=== PATIENT | male | born 1975 | race Caucasian/White ===

== ENCOUNTER 2018-06-28 11:50 | Emergency (ER) | payer SELFPAY ==
[2018-06-28 11:58] VITALS: BP 194/120; PULSE 92; RESP 20; TEMP 37.1; O2SAT 98
[2018-06-28 12:04] LABS: Bilirubin Negative (Negative); Blood Moderate (Negative); Clarity Sl Cloudy; Glucose Negative (Negative); Ketones Negative (Negative); Leukocyte Esterase Negative (Negative); Nitrite Negative (Negative); Specific Gravity >= 1.030 (1.005-1.025); Urobilinogen 0.2 EU/dL (Up TO 0.2)
[2018-06-28 12:20] LABS: Bacteria Negative HPF (Negative); C & S Indicated? No; Casts Negative LPF (Negative); Crystals Moderate Amorphous HPF (Negative); Epithelial Cells Negative HPF (Negative); Mucus Heavy (Negative); WBC 0-2 HPF (0-5)
[2018-06-28] MEDS: Ondansetron 4 MG/2 ML VIAL IVP (12:20)
[2018-06-28] MEDS: Lactated Ringers 1,000 ML 1000 ML IV (12:20)
[2018-06-28] MEDS: Ketorolac 30 MG/ML VIAL IVP (12:21)
--- NOTE | 2018-06-28 12:28 | W.ED.GENAD ---
Discharge Plan Disposition Patient Disposition: HOME Discharge Details Chief Complaint: FlankPain Clinical Impression: Right kidney stone, Acute flank pain, Enlarged lymph node, Elevated blood pressure reading Primary Care Provider: Anirudh Schmitz ED Provider: Gurmeet Keller Home Meds and New Rx's Prescriptions: Continue ibuprofen 200 MG tablet 200 - 800 mg PO PRN PRNRF: 0 Discharge Instructions Instructions: Kidney Stones (ED), Hypertension (ED) Additional Instructions: Please take ibuprofen 600 mg every 6 hours as needed for pain. Use Zofran as prescribed if you have any significant nausea. Please follow-up with your primary care physician. Call today to schedule follow-up. Please be sure to discuss diagnostic imaging results including ultrasound that revealed left groin lymph node enlargement. You also need to follow-up with your primary care physician regarding your elevated blood pressure today. Please follow-up with urology. Call for an appointment. Please contact your primary care physician to arrange follow-up. Return to the ER for any worsening or new concerning symptoms. Referrals: Sam Shaikh MD [ [facility] STAFF PHYSICIAN] - Anirudh Schmitz MD [Primary Care Provider] - Discharge Data Discharge Date/Time-TO BE ENTERED AT DEPARTURE: 06/28/18 15:45 Medical Decision Making 42-year-old male with history of renal stones in the past, always on the right side, here with right flank pain consistent with prior renal stones. He has had some associated nausea and vomiting. No abdominal pain. No dysuria. No fever. Patient also notes that he has had some swelling of his right lower extremity which is chronic and of unknown etiology. Right lower extremity ultrasound was interpreted by radiology as negative for DVT, prominent lymph node was noted in the right groin. Renal ultrasound was interpreted by radiology: Technically limited study, left kidney with no gross hydronephrosis, right kidney with questionable mild hydronephrosis, no right ureteral jet noted. Patient was treated with Toradol 30 mg IV and Zofran 4 mg IV. He had significant reduction in pain and on reassessment pain was resolved. Nausea also resolved. He is feeling much better and requesting discharge. I reviewed the results of studies with the patient. I specifically discussed with him the limitations of the ultrasound study and the fact that he may have a large stone and potential for worsening disease that would go undiagnosed without additional diagnostics. We talked about the risk benefits of obtaining a CT abdomen pelvis at this time for further diagnostic value and he declined. Patient specifically notes he would prefer to be discharged given that he is feeling better and notes that he will follow-up with urology and will return to the ER should he have any running or new concerning symptoms. Disposition decision to discharge was made weighing risk and benefits of hospitalization versus outpatient treatment, the risk for further decompensation and the patient's wishes. The patient is stable, improved and requesting discharge. Prior to discharge in the usual and customary return precautions were reviewed with the patient and family. This included follow-up instructions and reasons to return to the emergency department if condition worsens, does not improve as expected, or other new concerns arise. HPI General Mode of arrival: ambulatory. Date/Time Provider Initiated Documentation: 06/28/18 12:10. Limitations to Documentation: no limitations. Information obtained by: patient. HPI Narrative: 42-year-old male with history of renal stones, all on the right side, presents today with chief complaint of right flank pain. Pain started a couple hours ago and has persisted. Pain is severe. Pain feels exactly like prior renal stone exacerbations. He has associated nausea and vomiting. No abdominal pain. No fever. Patient also notes chronic right lower extremity swelling with no recent change of unknown etiology. Related Data Home Medications Medication Instructions Recorded Confirmed ibuprofen 200 - 800 mg PO PRN PRN 12/26/17 06/28/18 Allergies Allergy/AdvReac Type Severity Reaction Status Date / Time acetaminophen [From Percocet] AdvReac Intermediate Nausea Unverified 06/28/18 12:00 oxycodone HCl [From Percocet] AdvReac Intermediate Nausea Unverified 06/28/18 12:00 General Stated Complaint: FlankPain MAYELA: 3 Review of Systems Review of Systems All systems reviewed & are unremarkable except as noted in HPI and below Gastrointestinal Reports as per HPI Genitourinary Reports as per HPI PFS Medical History Depression Neck pain Obesity Social History Smoking/Tobacco Use Status: Former Tobacco Use Surgical History Arthroplasty of knee Repair of umbilical hernia (12/28/17) Exam Const General: cooperative and no acute distress HENMT Head: normocephalic and atraumatic Mouth: moist mucous membranes Eyes Conjunctivae: normal conjunctivae Sclera: normal sclerae EOM: EOM intact bilaterally Neck Neck: trachea midline and supple Resp Auscultation: clear to auscultation bilaterally, no rales, no rhonchi and no wheezes Cardio Jugular venous pressure: no JVD Rate: regular rate and not tachycardic Rhythm: regular rhythm GI Palpation: soft, not firm, no guarding, no masses, not rigid and nontender General: CVA tenderness on the right Male General Exam: Yes normal external exam Penis: normal penis Meatus: meatus normal Scrotum: scrotum normal Testes: normal Skin General skin exam: no rashes or lesions noted Neuro General: alert, awake, oriented x3 and tone normal Extrem General: no edema Psych Appearance: grossly normal Mental Status: mental status grossly normal Speech and Movement: speech and movement normal Course Vital Signs Temperature 37.1 C 06/28/18 11:58 Pulse 92 H 06/28/18 11:58 Respiratory Rate 20 06/28/18 11:58 Blood Pressure 194/120 H 06/28/18 11:58 Pulse Oximetry 98 06/28/18 11:58 Temperature 37.1 C 06/28/18 11:58 Temperature Source Temporal Artery Scan 06/28/18 11:58 Pulse 92 H 06/28/18 11:58 Respiratory Rate 20 06/28/18 11:58 Respiratory Effort 06/28/18 12:01 Blood Pressure 194/120 H 06/28/18 11:58 Blood Pressure Position Sitting 06/28/18 11:58 Pulse Oximetry 98 06/28/18 11:58 Oxygen Delivery Method Room Air 06/28/18 11:58 Oxygen Flow Rate 0 06/28/18 11:58 Pain Level 9 06/28/18 12:01 Lab/Test Results Lab/Test Results: Laboratory Tests Range/Units 06/28/18 11:55 Urine Color (Yellow) Yellow Urine Clarity Sl cloudy Urine pH (5-8) 6.0 Ur Specific Tinnie (1.005-1.025) >= 1.030 H Urine Protein (Negative) mg/dL Negative Urine Ketones (Negative) mg/dL Negative Urine Blood (Negative) Moderate H Urine Nitrite (Negative) Negative Urine Bilirubin (Negative) Negative Urine Urobilinogen (Up TO 0.2) EU/dL 0.2 Ur Leukocyte Esterase (Negative) Negative Urine RBC (0-2) 10-20 H Urine WBC (0-5) HPF 0-2 Ur Epithelial Cells (Negative) HPF Negative Urine Crystals (Negative) HPF Moderate amorphous Urine Bacteria (Negative) HPF Negative Urine Casts (Negative) LPF Negative Urine Mucus (Negative) Heavy Ur Culture Indicated? No Urine Glucose (Negative) mg/dL Negative
[2018-06-28 12:41] LABS: Abs Immature Grans 0.04 k/cumm (0.0-0.09); Absolute Eosinophil Count 0.04 k/cumm (0.0-0.7); Absolute Lymphocyte Count 1.75 k/cumm (1.2-3.4); Basophils % 0.2; Eosinophils % 0.3; HCT 42.2 % (40.0-50.0); HGB 14.6 g/dL (13.5-17.5); Immature Grans % 0.3; Lymphocytes % 14.2; Mean Corp. HGB Concentration 34.6 g/dL (32.0-36.0); Mean Corpuscular Hemoglobin 28.2 pg (27.0-33.0); Mean Corpuscular Volume 81.6 fL (80-95); Monocytes % 6.5; Neutrophils % 78.5; Platelet Count 266 x1000/uL (130-400); RBC 5.17 m/cumm (4.50-6.00); RBC Distribution Width 13.7 % (11.8-14.1); White Blood Cell Count 12.33 k/cumm (4.4-10.8)
[2018-06-28 12:42] LABS: Absolute Basophil Count 0.02 k/cumm (0.0-0.2); Absolute Neutrophil Count 9.68 k/cumm (1.2-6.7)
--- NOTE | 2018-06-28 12:51 | DI.US_ITS ---
SYMPTOMS/DIAGNOSIS: SWELLING, ? DVT RIGHT LEG ULTRASOUND: There is no evidence of DVT. Varicose veins in the calf compress well.
[2018-06-28 12:54] LABS: ALT 49 U/L (12-78); AST 20 U/L (15-37); Albumin 4.4 g/dL (3.4-5.0); Alkaline Phosphatase 82 U/L (46-116); Anion Gap 9.7 mmol/L (3-11); BUN 15 mg/dL (7-18); Bilirubin, Total 0.4 mg/dL (0.2-1.0); CO2 29.3 mmol/L (21.0-32.0); CREATININE 1.01 mg/dL (0.70-1.30); Calcium 9.3 mg/dL (8.5-10.1); Chloride 98 mmol/L (98-107); Glucose 122 mg/dL (70-100); Potassium 3.9 mmol/L (3.5-5.1); Sodium 137 mmol/L (136-145); Total Protein 8.2 g/dL (6.4-8.2)
--- NOTE | 2018-06-28 13:28 | DI.US_ITS ---
SYMPTOMS/DIAGNOSIS: KIDNEY STONE, LT FLANK PAIN RENAL ULTRASOUND: The right kidney measures 12.6 x 7.2 x 6.3 cm. There is a question regarding possible mild hydronephrosis. There are multiple small nonobstructing calculi in the kidney. The left kidney measures 12.6 x 5.5 cm. Small echogenic foci are noted in the lower pole consistent with nonobstructing nephrolithiasis. The prevoid bladder contains 101 cc's. The patient could not void at the time of this study. The left ureteral jet was visualized. The right ureteral jet was not seen. SUMMARY: Technically limited study due to the patient's body habitus. There is as noted above, no evidence of DVT. There is a question regarding mild right hydronephrosis and bilateral nonobstructing nephrolithiasis is demonstrated.
== END 2018-06-28 15:45 | disposition home or self-care (01) ==
PROVIDERS: Emergency Provider Student in an Organized Health Care Education/Training Program; PCP Family Medicine
DX: N20.0 Calculus of kidney (principal); R10.9 Unspecified abdominal pain; R59.0 Localized enlarged lymph nodes; R03.0 Elevated blood-pressure reading, without diagnosis of hypertension
CPT/HCPCS: 36415; 76770; 80053; 96361; 96374; 96375; 99284; 81003; 81015; 85025; 93971; J1885; J2405

== ENCOUNTER 2018-11-12 12:07 | Outpatient (CLI) | payer OTHER, SELFPAY ==
[2018-11-12 15:43] LABS: BUN 22 mg/dL (7-18); CREATININE 0.91 mg/dL (0.70-1.30); Calcium 9.1 mg/dL (8.5-10.1); Chloride 99 mmol/L (98-107); Glucose 89 mg/dL (70-100); Potassium 4.2 mmol/L (3.5-5.1); Sodium 134 mmol/L (136-145)
[2018-11-12 15:55] LABS: Cholesterol 180 mg/dL (50-200); HDL Cholesterol 39 mg/dL (40-60); LDL CHOLESTEROL 118 mg/dL (<100); Triglyceride 140 mg/dL (30-150)
== END 2018-11-12 12:27 ==
PROVIDERS: PCP Family Medicine; Visit Provider Emergency Medicine
DX: I10 Essential (primary) hypertension (principal); E11.9 Type 2 diabetes mellitus without complications; E66.9 Obesity, unspecified
CPT/HCPCS: 36415; 80048; 80061; 83721; 83036

== ENCOUNTER 2019-04-02 06:15 | Day surgery (SDC) | payer OTHER, SELFPAY ==
[2019-04-02] VITALS (8 sets, daily range): BP systolic 87–118; BP diastolic 48–73; PULSE 55–64; RESP 12–18; TEMP 36–36.5; O2SAT 92–99
[2019-04-02] MEDS: Lactated Ringers 1,000 ML 80 ML IV ×2 (07:06→08:41)
[2019-04-02] MEDS: ceFAZolin 2 GM/50 ML BAG IVPB (07:26)
[2019-04-02] MEDS: Bupivacaine 0.25% Pres-Free 30 ML VIAL ×2 (07:35→07:58)
[2019-04-02] MEDS: Normal Saline Flush 10 ML SYR (07:46)
[2019-04-02] MEDS: Lidocaine 2% Multi-Dose 50 ML VIAL (07:58)
[2019-04-02] MEDS: Ketorolac 15 MG/ML VIAL IVP (09:35)
--- NOTE | 2019-04-02 09:37 | W.PM.DSUDISC ---
Discharge Plan Disposition Patient Disposition: HOME Condition: Good Discharge Details Reason For Visit: Ventral hernia repair Attending Provider: Caity Goetz Primary Care Provider: Maxx Victor Home Meds and New Rx's Prescriptions: Continued lisinopril-hydrochlorothiazide 10-12.5 mg tablet 1 tab PO DAILY Qty: 90 RF: 3 ibuprofen 200 MG tablet 200 - 800 mg PO PRN PRNRF: 0 Discharge Instructions Additional Instructions: Measure daily drain output. Call the office for removal when the volume is less than 30cc (one ounce)/day Referrals: Caity Goetz MD [ [facility] STAFF PHYSICIAN] - (Return for drain removal as above and in 10-14 days for staple removal) Activity:: Do not lift more than 15 pounds for one month Remove Dressings/Wound Care:: 72 hours Shower/Bathe:: 24 hours Diet:: As Tolerated Discharge Orders Discharge Orders: Discharge Order (Routine); Ordered 04/02/19 Ordered By: Caity Goetz DS: Diagnosis Discharge Diagnosis (1) Ventral hernia: Start date: 04/02/19 Start time: 09:38 Status: Acute
--- NOTE | 2019-04-02 17:40 | ROE_ITS ---
DATE OF PROCEDURE: April 02, 2019 PREOPERATIVE DIAGNOSIS: Recurrent ventral hernia. POSTOPERATIVE DIAGNOSIS: Same. PROCEDURE: Recurrent ventral hernia repair with mesh. SURGEON: Caity Goetz M.D. ANESTHESIA: General and TAP block. INDICATIONS: This is a 43-year-old man who presents with an epigastric hernia that is partially redu cible. It does contain bowel on preoperative examination. The patient's history is significant for a hernia repair in the same area last year, which was performed laparoscopically. PROCEDURE: The patient was placed supine on the operating table and after induction of general anest hetic had a bilateral TAP block placed. His upper abdomen was prepped and draped sterilely. The ski n overlying the hernia was infiltrated with local anesthetic and a vertical midline incision made. T he subcutaneous tissue was divided with cautery down to a large hernia sac. This was dissected free of the subcutaneous tissue down to the level of the fascia and reduced. The fascial defect was measu red at 4 cm. I did open up the hernia sac to visualize the contents. At this point there was only o mentum contained within it, which was freed up from the peritoneum. A majority of the hernia sac was amputated. Palpation within the abdomen revealed that the previously placed mesh, which was behind the umbilicus, was in good position. The fascial defect was immediately adjacent and may have been p art of his original injury, although not necessarily evident at the time of that procedure. The unde rside of the fascia was cleared off and then an 8x12 Ventralex mesh inserted and sutured in position circumferentially with #0 Prolene stitches. These were placed in a buried fashion in vertical mattre ss style. This was performed in four quadrants and then in between the sutures as well. This result ed in very nice coverage of the defect. The fascia could then be approximated in a horizontal fashio n with interrupted #0 Vicryl sutures. The residual hernia sac was directly under the fascial closure in between the mesh and fascia to provide an added layer of protection. The subcutaneous space was irrigated. It had good hemostasis. To avoid a seroma, a 10 Flat Chalino-Kirk drain was placed into the subcutaneous space and exited out to a small stab incision in the right mid-abdomen. This was s utured with a #3-0 Nylon. The deep dermis and subcutaneous tissue was approximated with a buried #3- 0 Vicryl stitch and then the skin closed with sivakumar. He tolerated the procedure well and was stabl e to recovery. cc: Maxx Victor D.O.
== END 2019-04-02 11:33 | disposition home or self-care (01) ==
PROVIDERS: PCP Emergency Medicine; Visit Provider Surgery
PROC: (CPT 49565; principal; 2019-04-02 07:30)
DX: K43.2 Incisional hernia without obstruction or gangrene (principal); F17.210 Nicotine dependence, cigarettes, uncomplicated
CPT/HCPCS: 49565; 49568; 76942; C1781; J0690; J1100; J1885; J2250; J2405